=== PATIENT | female | born 1990 | race Caucasian/White ===

== ENCOUNTER 2016-08-04 15:24 | Emergency (ER) | payer SELFPAY ==
--- NOTE | 2016-08-04 17:21 | DIAGNOSTIC IMAGING REPORT ---
PROCEDURE: CT ABD/PELVIS WITH CONTRAST CLINICAL INDICATION: Right lower quadrant pain x 2 days, initial encounter TECHNIQUE: 125 ml of Isovue 300 were injected intravenously and axial images were obtained of the entire abdomen and pelvis with sagittal and coronal reformations. COMPARISON: None. FINDINGS: ABDOMEN: Lung base are clear. Heart size is normal. Liver, gallbladder, pancreas, spleen, adrenal glands, kidneys and abdominal aorta are normal. Nonspecific bowel gas pattern. PELVIS: Normal appendix. 1.9 cm involuting right ovarian cysts with a small amount of adjacent free fluid. Normal uterus, left adnexa and bladder. Bones are unremarkable. IMPRESSION: 1. Normal appendix 2. 1.9 cm involuting right ovarian cysts with a small amount of adjacent free fluid 3. Results discussed with Dr. Perez All CT scans at this facility use dose modulation, iterative reconstruction, and/or weight-based dosing when appropriate to reduce radiation dose to as low as reasonably achievable.
--- NOTE | 2016-08-04 17:43 | ED ORDER SUMMARY ---
..... Patient: LEAH KONG OrderSheet [facility] VisitID: [id number] [place] [address] 26y, F Registration Date/Time: 08/04/2016 ORDER SHEET Weight: 70.3 kg (stated) Allergies: None GENERAL ORDERS: UA-Culture if indicated Urgent (15:56 08/04/2016 Jay R.N. verbal order read back to Nicole SHIELDS) (15:56 Jay R.N.) CT Abd/Pel w Cont (No) (N/A) Urgent (15:57 08/04/2016 Nicole SHIELDS) (Ack 16:00 LMuller) (17:01 [facility]) CBC w Diff Urgent (15:57 08/04/2016 Nicole SHIELDS) (Ack 16:00 LMuller) (16:28 Jay R.N.) Urine Urgent (15:57 08/04/2016 Nicole SHIELDS) (Ack 16:00 LMuller) (16:28 Jay R.N.) CMP Urgent (15:57 08/04/2016 Nicole SHIELDS) (Ack 16:00 LMuller) (16:28 Jay R.N.) Lipase Urgent (15:57 08/04/2016 Nicole SHIELDS) (Ack 16:00 LMuller) (16:28 Jay R.N.) Amylase Urgent (15:57 08/04/2016 Nicole SHIELDS) (Ack 16:00 LMuller) (16:28 Jay R.N.) MEDICATION ORDERS: IV FLUIDS: IV NS : initial bolus 500 mL (1000 mL/hr), then 250 mL/hr for 4h (NOW); Routine (15:57 08/04/2016 Nicole SHIELDS) (16:26 Jay R.N.) Dilaudid IV 1 mg (NOW) (16:08/04/2016 Nicole SHIELDS) (16:28 Jay R.N.) Zofran IV 4 mg (NOW) (16:08/04/2016 Nicole SHIELDS) (16:27 Jay Bennett) ORDER SHEET NOTES: [Electronically signed by Jose Martin Valdivia R.N. (18:31 08/04/2016)] [Electronically signed by Julián Perez MD (17:20 08/08/2016)] [Electronically locked/signed by Jose Martin Valdivia R.N. (18:08/04/2016)]
--- NOTE | 2016-08-04 17:43 | ED NURSING NOTES ---
Clinical Report - Nurses [facility] [place] [address] 08/04/2016 15:27 Patient: LEAH KONG TRIAGE Triage time 15:50 Aug 04 2016. --15:50 Go Hui R.N. Acuity: LEVEL 3. Chief Complaint: ABDOMINAL PAIN and NAUSEA. Alert. SEAN COMA SCORE: [place] Coma Scale: 15- eyes open spontaneously (4); best verbal response- oriented x 4 (5); best motor response- obeys commands (6). --16:05 Go Hui R.N. 15:59 08/04/16. BP: 110/76. HR: 83. RR: 18. O2 saturation: 100% on room air. Temp: 98.4 F (oral). Pain level now: 8/10. Additional comments: Constant, stabbing. --16:05 Go Hui R.N. Weight: 70.3 kg stated. Height/Length: 61 inches Per Patient. BMI: 29.3. --16:00 Go Hui R.N. Medications Tums Oral, as needed. Tylenol Oral, as needed. --16:00 Go Hui R.N. Medication/allergy information source: the patient. --16:05 Go Hui R.N. Allergies None. --18:31 Jose Martin Valdivia R.N. History Arrived by private vehicle. Historian: patient. Accompanied by friend. ( RLQ Abdominal Pain). --15:50 Go Hui R.N. This started yesterday. Onset. (about 22 hours ago). She has had nausea and abdominal pain. 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 Symptoms did not improve after treatment. PAST MEDICAL HX: Immunizations: status is unknown. Last normal menstrual period was 2 weeks ago. Denies current . SOCIAL HX: No marijuana. Heavy tobacco smoker (cigarette)- less than 1 pack per day. No alcohol use. No recent travel. No infectious disease exposure. No known contact with a sick individual. ABUSE ASSESSMENT: No report of abuse. FALL RISK ASSESSMENT: Fall risk assessment completed. No fall risk identified. NUTRITIONAL RISK ASSESSMENT: The nutritional risk assessment revealed no deficiencies. FUNCTIONAL ASSESSMENT: Functional assessment: no impairments noted. LEARNING NEEDS ASSESSMENT: The learning needs assessment revealed no barriers. SKIN INTEGRITY ASSESSMENT: Skin integrity risk assessment completed. No skin integrity risk identified. --16:05 Go Hui R.N. Interventions ID band on patient. To treatment room. --16:05 Go Hui R.N. PHYSICAL ASSESSMENT Ambulatory to room. GENERAL / NEURO / PSYCH: Alert. Oriented X 4. Appears in pain. HEENT: Mucous membranes are pink. RESPIRATORY: Respirations not labored. CVS: Normal sinus rhythm noted. GI / : Abdomen soft. Abdominal tenderness in the right lower quadrant. SKIN: Skin is warm and dry. --16:05 Go Hui R.N. NURSING PROGRESS NOTES Patient gowned. Reassurance given. Patient identifiers checked. Call light placed in reach. Side rails up x 1. Bed placed in lowest position. Brakes of bed on. Patient ready for evaluation- chart flagged and ED physician notified. --16:05 Go Hui R.N. 16:16 08/04/2016 Site #1 started via IV in the right antecubital space with an 20g angiocath, with aseptic technique and good blood return; one attempt. Blood drawn: rainbow set. Labeled in the presence of the patient and sent to the lab. Saline lock flushed with 10 mL saline. --16:26 Go Hui R.N. 16:08/04/2016 Started bag #1 1000 mL IV Fluids IV NS (Saline); at 500 mL/hr over 60 minute(s) via site #1 via IV pump. Allergies verified and confirmed 5 rights. IV patency established. IV site checked: no pain, redness, or swelling. IV flushed thoroughly pre- and post-medication administration. --16:26 Go Hui R.N. 16:08/04/2016 Zofran (Ondansetron HCl) IVP 4 mg given over 2 minute(s) via site #1. Allergies verified and confirmed 5 rights. IV patency established. IV site checked: no pain, redness, or swelling. IV flushed thoroughly pre- and post-medication administration. IVP given by RN. --16:27 Go Hui R.N. 16:26 08/04/2016 Dilaudid (HYDROmorphone HCl PF) IVP 1 mg given over 2 minute(s) via site #1. 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 IV patency established. IV site checked: no pain, redness, or swelling. IV flushed thoroughly pre- and post-medication administration. IVP given by RN. --16:28 Go Hui R.N. 17:30 08/04/16. BP: 105/71. HR: 58. RR: 16. O2 saturation: 100%. Pain level now: 0/10. --17:39 Go Hui R.N. 18:02 08/04/2016 IV Fluids IV NS Discontinued: bag #1 infused upon discharge. Total amount infused: 800 mL. IV patency established. IV site checked: no pain, redness, or swelling. IV flushed thoroughly. --18:02 Jose Martin Valdivia R.N. DISPOSITION / DISCHARGE 18:02 08/04/2016 Site #1 removed upon discharge. Catheter intact. --18:02 Jose Martin Valdivia R.N. 18:08/04/16. Condition at departure: improved. The goals identified in the patient's plan of care were met. No learning barriers present. Discharge instructions provided and reviewed with the patient. Reviewed warnings. Reviewed medication(s). Treatments reviewed. Patient verbalized understanding. Written instructions provided in Kazakh. The patient was discharged by the physician. She was discharged home and accompanied by family. She left the Emergency Department ambulatory and via private vehicle. Family member driving. FALL RISK ASSESSMENT: Fall risk assessment completed. No fall risk identified. --18:02 Jose Martin Valdivia R.N. 18:08/04/16. BP: 108/72. HR: 80. RR: 12. O2 saturation: 99% on room air. Temp: 98.1 F (oral). --18:02 Jose Martin Valdivia R.N. 18:08/04/16. Departure time: 18:02. --18:02 Jose Martin Valdivia R.N. Locked/Released at 08/04/2016 18:31 by Jose Martin Valdivia R.N.
--- NOTE | 2016-08-04 17:43 | ED NURSING NOTES ---
Clinical Report - Nurses [facility] [place] [address] 08/04/2016 15:27 Patient: LEAH KONG TRIAGE Triage time 15:50 Aug 04 2016. --15:50 Go Hui R.N. Acuity: LEVEL 3. Chief Complaint: ABDOMINAL PAIN and NAUSEA. Alert. SEAN COMA SCORE: [place] Coma Scale: 15- eyes open spontaneously (4); best verbal response- oriented x 4 (5); best motor response- obeys commands (6). --16:05 Go Hui R.N. 15:59 08/04/16. BP: 110/76. HR: 83. RR: 18. O2 saturation: 100% on room air. Temp: 98.4 F (oral). Pain level now: 8/10. Additional comments: Constant, stabbing. --16:05 Go Hui R.N. Weight: 70.3 kg stated. Height/Length: 61 inches Per Patient. BMI: 29.3. --16:00 Go Hui R.N. Medications Tums Oral, as needed. Tylenol Oral, as needed. --16:00 Go Hui R.N. Medication/allergy information source: the patient. --16:05 Go Hui R.N. Allergies None. --18:31 Jose Martin Valdivia R.N. History Arrived by private vehicle. Historian: patient. Accompanied by friend. ( RLQ Abdominal Pain). --15:50 Go Hui R.N. This started yesterday. Onset. (about 22 hours ago). She has had nausea and abdominal pain. 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 Symptoms did not improve after treatment. PAST MEDICAL HX: Immunizations: status is unknown. Last normal menstrual period was 2 weeks ago. Denies current . SOCIAL HX: No marijuana. Heavy tobacco smoker (cigarette)- less than 1 pack per day. No alcohol use. No recent travel. No infectious disease exposure. No known contact with a sick individual. ABUSE ASSESSMENT: No report of abuse. FALL RISK ASSESSMENT: Fall risk assessment completed. No fall risk identified. NUTRITIONAL RISK ASSESSMENT: The nutritional risk assessment revealed no deficiencies. FUNCTIONAL ASSESSMENT: Functional assessment: no impairments noted. LEARNING NEEDS ASSESSMENT: The learning needs assessment revealed no barriers. SKIN INTEGRITY ASSESSMENT: Skin integrity risk assessment completed. No skin integrity risk identified. --16:05 Go Hui R.N. Interventions ID band on patient. To treatment room. --16:05 Go Hui R.N. PHYSICAL ASSESSMENT Ambulatory to room. GENERAL / NEURO / PSYCH: Alert. Oriented X 4. Appears in pain. HEENT: Mucous membranes are pink. RESPIRATORY: Respirations not labored. CVS: Normal sinus rhythm noted. GI / : Abdomen soft. Abdominal tenderness in the right lower quadrant. SKIN: Skin is warm and dry. --16:05 Go Hui R.N. NURSING PROGRESS NOTES Patient gowned. Reassurance given. Patient identifiers checked. Call light placed in reach. Side rails up x 1. Bed placed in lowest position. Brakes of bed on. Patient ready for evaluation- chart flagged and ED physician notified. --16:05 Go Hui R.N. 16:16 08/04/2016 Site #1 started via IV in the right antecubital space with an 20g angiocath, with aseptic technique and good blood return; one attempt. Blood drawn: rainbow set. Labeled in the presence of the patient and sent to the lab. Saline lock flushed with 10 mL saline. --16:26 Go Hui R.N. 16:08/04/2016 Started bag #1 1000 mL IV Fluids IV NS (Saline); at 500 mL/hr over 60 minute(s) via site #1 via IV pump. Allergies verified and confirmed 5 rights. IV patency established. IV site checked: no pain, redness, or swelling. IV flushed thoroughly pre- and post-medication administration. --16:26 Go Hui R.N. 16:08/04/2016 Zofran (Ondansetron HCl) IVP 4 mg given over 2 minute(s) via site #1. Allergies verified and confirmed 5 rights. IV patency established. IV site checked: no pain, redness, or swelling. IV flushed thoroughly pre- and post-medication administration. IVP given by RN. --16:27 Go Hui R.N. 16:26 08/04/2016 Dilaudid (HYDROmorphone HCl PF) IVP 1 mg given over 2 minute(s) via site #1. 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 IV patency established. IV site checked: no pain, redness, or swelling. IV flushed thoroughly pre- and post-medication administration. IVP given by RN. --16:28 Go Hui R.N. 17:30 08/04/16. BP: 105/71. HR: 58. RR: 16. O2 saturation: 100%. Pain level now: 0/10. --17:39 Go Hui R.N. 18:02 08/04/2016 IV Fluids IV NS Discontinued: bag #1 infused upon discharge. Total amount infused: 800 mL. IV patency established. IV site checked: no pain, redness, or swelling. IV flushed thoroughly. --18:02 Jose Martin Valdivia R.N. DISPOSITION / DISCHARGE 18:02 08/04/2016 Site #1 removed upon discharge. Catheter intact. --18:02 Jose Martin Valdivia R.N. 18:08/04/16. Condition at departure: improved. The goals identified in the patient's plan of care were met. No learning barriers present. Discharge instructions provided and reviewed with the patient. Reviewed warnings. Reviewed medication(s). Treatments reviewed. Patient verbalized understanding. Written instructions provided in German. The patient was discharged by the physician. She was discharged home and accompanied by family. She left the Emergency Department ambulatory and via private vehicle. Family member driving. FALL RISK ASSESSMENT: Fall risk assessment completed. No fall risk identified. --18:02 Jose Martin Valdivia R.N. 18:08/04/16. BP: 108/72. HR: 80. RR: 12. O2 saturation: 99% on room air. Temp: 98.1 F (oral). --18:02 Jose Martin Valdivia R.N. 18:08/04/16. Departure time: 18:02. --18:02 Jose Martin Valdivia R.N. Locked/Released at 08/04/2016 18:31 by Jose Martin Valdivia R.N.
--- NOTE | 2016-08-04 17:43 | ED CLINICAL REPORT ---
Clinical Report - Physicians/Mid Levels [facility] [address] [place] [address] 08/04/2016 15:27 Patient: LEAH KONG Time Seen: 15:29 Aug 04 2016. Arrived- By private vehicle. Historian- patient. CPT: ER phys charges level 4 (#533907). HISTORY OF PRESENT ILLNESS Chief Complaint: ABDOMINAL PAIN. At its maximum, severity described as moderate. When seen in the E.D., severity described as moderate. Modifying factors- worsened by movement. Relieved by rest. It is described as "pain", sharp and stabbing and it is described as located in the right lower quadrant. This started yesterday. The patient has had nausea and loss of appetite. No vomiting or diarrhea. No recent travel. Similar symptoms previously: None. Recent medical care: Not recently seen/assessed. REVIEW OF SYSTEMS No constipation, black stools, hematemesis, difficulty with urination or pain with urination. No urinary frequency, fever, sore throat, chest pain or difficulty breathing. No cough, joint pain, skin rash, chills or back pain. All systems otherwise negative, except as recorded above. PAST HISTORY Negative. Medications: Tums Oral, as needed. Tylenol Oral, as needed. Allergies: None. SOCIAL HISTORY Heavy tobacco smoker (cigarette)- 1 pack per day. No alcohol use or drug use. ADDITIONAL NOTES The nursing notes have been reviewed. PHYSICAL EXAM Vital Signs: 08/04/2016 15:59 BP: 110/76. HR: 83. RR: 18. O2 saturation: 100%. Temp: 98.4 F. Pain level now: 8/10. Appearance: Alert. Patient in mild distress. Eyes: Eyes normal inspection. ENT: Pharynx normal. Neck: Normal inspection. CVS: Normal heart rate and rhythm. Heart sounds normal. Pulses normal. Respiratory: No respiratory distress. Breath sounds normal. Chest nontender. Abdomen: Soft. Moderate tenderness in the right lower quadrant. No guarding. Bowel sounds normal. No mass. Back: Normal inspection. Skin: Skin warm. Normal skin color. No rash. Extremities: Extremities exhibit normal ROM. No lower extremity edema. Neuro: Oriented X 3. No motor deficit. LABS, X-RAYS, AND EKG Abdominal CT: An ovarian cyst is present. There is free fluid- involuding cyst consistent with rupture. The study was independently viewed by me, interpreted by the radiologist and discussed with the radiologist. Laboratory Tests: UA-Culture if indicated: (JM: 08/04/2016 15:45) ( [facility] 08/04/2016 16:29) Final results Test Result Flag Units (Reference) URINE COLOR COLORLESS URINE APPEARANCE CLEAR URINE GLUCOSE NEGATIVE (NEGATIVE) URINE BILIRUBIN NEGATIVE (NEGATIVE) URINE KETONE NEGATIVE (NEGATIVE) URINE SPECIFIC GRAVITY 1.010 (1.010-1.030) URINE PH 6.5 (5.0-8.0) URINE PROTEIN NEGATIVE (NEGATIVE) URINE UROBILINOGEN 0.2 EU/dL (0.2-1.0) URINE NITRITE NEGATIVE (NEGATIVE) URINE BLOOD NEGATIVE (NEGATIVE) URINE LEUK ESTERASE NEGATIVE (NEGATIVE) URINE RBC 0-1 rbc/hpf (0-1) URINE WBC 0-1 wbc/hpf (0-1) URINE EPITHELIAL CELLS NONE SEEN EPI/hpf (0-5) URINE BACTERIA NONE SEEN (NONE SEEN) URINE COMMENT CULT NOT INDICATED URINE CULTURES ARE SET-UP BASED ON THE FOLLOWING CRITERIA:POSITIVE NITRITEPOSITIVE LEUKOCYTE ESTERASEGREATER THAN 10 WHITE BLOOD CELLSMODERATE (2+) OR GREATER BACTERIA Urine: (JM: 08/04/2016 15:45) ( [facility] 08/04/2016 16:13) Final results Test Result Flag Units (Reference) URINE NEGATIVE CBC w Diff: (JM: 08/04/2016 16:10) ( [facility] 08/04/2016 17:04) Final results Test Result Flag Units (Reference) WHITE BLOOD COUNT 10.0 K/uL (4.5-11.5) RED BLOOD COUNT 4.76 M/uL (4.00-5.20) HEMOGLOBIN 14.3 gm/dL (12.0-16.0) HEMATOCRIT 43.1 % (36.0-46.0) MEAN CELL VOLUME 91 fL (80-100) MEAN CORPUSCULAR HGB 30 pg (26-34) MEAN CORPUSCULAR HGB CONC 33 g/dL (31-37) RED CELL DISTRIBUTION WIDTH 13.2 % (11.6-14.8) PLATELET COUNT 251 K/uL (150-400) NEUTROPHIL % 73.8 % (50-75) LYMPH % 19.0 L % (25-40) MONO % 6.7 % (3-14) EOSINOPHIL % 0.2 % (0-4) BASOPHIL % 0.3 % (0-2) CMP: (JM: 08/04/2016 16:10) ( MsgRcvd 08/04/2016 16:46) Final results Test Result Flag Units (Reference) GLUCOSE 86 mg/dL (70-110) BUN 8 mg/dL (7-18) CREATININE 0.7 mg/dL (0.6-1.3) Estimated GFR >60 mL/min Estimated GFR- >60 mL/min Note: Persistent reduction over 3 months in eGFR<60 mL/min/1.73 m2 defines CKD. Patients with eGFR values>=60 mL/min/1.73 m2 may also have CKD if evidence ofpersistent proteinuria. Additional information may be foundat www.kidney.org. SODIUM 140 mmol/L (136-145) POTASSIUM 3.8 mmol/L (3.5-5.1) CHLORIDE 105 mmol/L (98-107) CARBON DIOXIDE 24 mmol/L (21-32) CALCIUM 8.9 mg/dL (8.5-10.1) TOTAL PROTEIN 8.0 g/dL (6.4-8.2) ALBUMIN 3.8 g/dL (3.3-5.0) BILIRUBIN, TOTAL 0.5 mg/dL (0.0-1.0) ALKALINE PHOSPHATASE 56 U/L (46-116) AST (SGOT) 18 U/L (15-37) ALT (SGPT) 23 U/L (12-78) LIPASE 106 U/L (73-393) AMYLASE 63 U/L (25-115) . PROGRESS AND PROCEDURES Course of Care: IV normal saline and Zofran 4 mg IV and Dilaudid 1 mg IV. 17:40 08/04/16. This does not have any pain at this time. Patient is stable. The patient's symptoms are now gone. Patient/family counseled. Disposition: Discharged. Condition: stable and improved. CLINICAL IMPRESSION Single ruptured simple right ovarian cyst. INSTRUCTIONS No strenuous activity. Do not work for two days until better. Drink plenty of fluids. Warnings: Further evaluation is necessary. GENERAL WARNINGS: Return or contact your physician immediately if your condition worsens or changes unexpectedly, if not improving as expected, or if other problems arise. Prescription Medications: Zofran (orally disintegrating tablets) 4 mg: take 1 orally every 4 hours as needed for nausea. Dispense ten (10). No refill. Substitution is permissible. Oxycodone/APAP 5 mg/325 mg: take 1-2 tablets orally every 4 hours as needed for pain. Dispense twenty (20). No refill. Follow-up: Return to the emergency department If worse. Follow up with your doctor in three days if not better. Understanding of the discharge instructions verbalized by patient, parent and family. (Electronically signed by Julián Perez MD 08/08/2016 17:20)
--- NOTE | 2016-08-04 17:43 | ED ORDER SUMMARY ---
..... Patient: LEAH KONG OrderSheet [facility] VisitID: [id number] [place] [address] 26y, F Registration Date/Time: 08/04/2016 ORDER SHEET Weight: 70.3 kg (stated) Allergies: None GENERAL ORDERS: UA-Culture if indicated Urgent (15:56 08/04/2016 Jay R.N. verbal order read back to Nicole SHIELDS) (15:56 Jay R.N.) CT Abd/Pel w Cont (No) (N/A) Urgent (15:57 08/04/2016 Nicole SHIELDS) (Ack 16:00 LMuller) (17:01 [facility]) CBC w Diff Urgent (15:57 08/04/2016 Nicole SHIELDS) (Ack 16:00 LMuller) (16:28 Jay R.N.) Urine Urgent (15:57 08/04/2016 Nicole SHIELDS) (Ack 16:00 LMuller) (16:28 Jay R.N.) CMP Urgent (15:57 08/04/2016 Nicole SHIELDS) (Ack 16:00 LMuller) (16:28 Jay R.N.) Lipase Urgent (15:57 08/04/2016 Nicole SHIELDS) (Ack 16:00 LMuller) (16:28 Jay R.N.) Amylase Urgent (15:57 08/04/2016 Nicole SHIELDS) (Ack 16:00 LMuller) (16:28 Jay R.N.) MEDICATION ORDERS: IV FLUIDS: IV NS : initial bolus 500 mL (1000 mL/hr), then 250 mL/hr for 4h (NOW); Routine (15:57 08/04/2016 Nicole SHIELDS) (16:26 Jay R.N.) Dilaudid IV 1 mg (NOW) (16:08/04/2016 Nicole SHIELDS) (16:28 Jay R.N.) Zofran IV 4 mg (NOW) (16:08/04/2016 Nicole SHIELDS) (16:27 Jay Bennett) ORDER SHEET NOTES: [Electronically signed by Jose Martin Valdivia R.N. (18:31 08/04/2016)] [Electronically signed by Julián Perez MD (17:20 08/08/2016)] [Electronically locked/signed by Jose Martin Valdivia R.N. (18:08/04/2016)]
--- NOTE | 2016-08-08 17:20 | ED MED RECONCILIATION SUMMARY ---
Patient: LEAH KONG Medication Reconciliation Report [facility] VisitID: [id number] [address] [place] [address] 26y, F Registration Date/Time: 08/04/2016 Weight: 70.3 kg Height/Length: 61 in. BMI: 29.3 ALLERGIES: None The patient's Home Medications are listed below: THE FOLLOWING MEDICATIONS NEED TO BE RECONCILED: Tums Oral Tylenol Oral The source(s) of the original Home Medication information: patient The following Medications were given to the patient in the Emergency Department: IV NS IV Fluids bolus 0, then 500 mL/hr, administered: 08/04/2016 4:21:00 PM Zofran [IVP] IVP 4 mg, administered: 08/04/2016 4:24:00 PM Dilaudid [IVP] IVP 1 mg, administered: 08/04/2016 4:26:00 PM The following Medications were prescribed to the patient: Zofran (orally disintegrating tablets) 4 mg: take 1 orally every 4 hours as needed for nausea. Dispense ten (10). No refill. Substitution is permissible. -- Julián Perez MD Oxycodone/APAP 5 mg/325 mg: take 1-2 tablets orally every 4 hours as needed for pain. Dispense twenty (20). No refill. -- Julián Perez MD
--- NOTE | 2016-08-08 17:20 | ED MED RECONCILIATION SUMMARY ---
Patient: LEAH KONG Medication Reconciliation Report [facility] VisitID: [id number] [address] [place] [address] 26y, F Registration Date/Time: 08/04/2016 Weight: 70.3 kg Height/Length: 61 in. BMI: 29.3 ALLERGIES: None The patient's Home Medications are listed below: THE FOLLOWING MEDICATIONS NEED TO BE RECONCILED: Tums Oral Tylenol Oral The source(s) of the original Home Medication information: patient The following Medications were given to the patient in the Emergency Department: IV NS IV Fluids bolus 0, then 500 mL/hr, administered: 08/04/2016 4:21:00 PM Zofran [IVP] IVP 4 mg, administered: 08/04/2016 4:24:00 PM Dilaudid [IVP] IVP 1 mg, administered: 08/04/2016 4:26:00 PM The following Medications were prescribed to the patient: Zofran (orally disintegrating tablets) 4 mg: take 1 orally every 4 hours as needed for nausea. Dispense ten (10). No refill. Substitution is permissible. -- Julián Perez MD Oxycodone/APAP 5 mg/325 mg: take 1-2 tablets orally every 4 hours as needed for pain. Dispense twenty (20). No refill. -- Julián Perez MD
--- NOTE | 2016-08-08 17:20 | ED DISCHARGE INSTRUCTIONS ---
Patient: LEAH KONG General Instructions [facility] VisitID: [id number] [place] [address] 26y, F Registration Date/Time: 08/04/2016 Single ruptured simple right ovarian cyst. INSTRUCTIONS No strenuous activity. Do not work for two days until better. Drink plenty of fluids. Warnings: Further evaluation is necessary. GENERAL WARNINGS: Return or contact your physician immediately if your condition worsens or changes unexpectedly, if not improving as expected, or if other problems arise. Prescription Medications: Zofran (orally disintegrating tablets) 4 mg: take 1 orally every 4 hours as needed for nausea. Dispense ten (10). No refill. Substitution is permissible. Oxycodone/APAP 5 mg/325 mg: take 1-2 tablets orally every 4 hours as needed for pain. Dispense twenty (20). No refill. Follow-up: Return to the emergency department If worse. Follow up with your doctor in three days if not better. Understanding of the discharge instructions verbalized by patient, parent and family. ADDITIONAL INFORMATION Ovarian Cyst The ovary is a small organ located on each side of the uterus. During each menstrual cycle a tiny egg sac forms in the ovary. If the egg is released but does not occur, this sac usually dissolves. Sometimes, the sac may fill with fluid. It then enlarges into a painful cyst. Usually the cyst will rupture or shrink on its own. In either case, the pain gradually goes away over the next 1-3 days. If the cyst does not shrink or rupture, it may cause continued pain. Home Care: Rest in bed and avoid heavy exertion until you are feeling better. Heat to the lower abdomen usually helps (heating pad or hot packs -- a small towel soaked in hot water). You may use acetaminophen (Tylenol) or ibuprofen (Motrin, Advil) to control pain, unless another pain medicine was prescribed. [NOTE: If you have chronic liver or kidney disease or ever had a stomach ulcer or GI bleeding, talk with your doctor before using these medicines.] Follow Up: See your doctor within the next 2-3 days if your pain doesnt improve. Otherwise, follow up with your doctor after your next period or as directed by our staff. Get Prompt Medical Attention if any of the following occur: Pain worsens or fails to respond to the above measures Fever of 100.4F (38C) or higher, or as directed by your healthcare provider Heavy vaginal bleeding (soaking one pad an hour for three hours) You feel weak or dizzy Fainting Passage of a pink or pastor tissue with menstrual bleeding Ondansetron Oral disintegrating tablet What is this medicine? ONDANSETRON (on SABINA se genoveva) is used to treat nausea and vomiting caused by chemotherapy. It is also used to prevent or treat nausea and vomiting after surgery. How should I use this medicine? These tablets are made to dissolve in the mouth. Do not try to push the tablet through the foil backing. With dry hands, peel away the foil backing and gently remove the tablet. Place the tablet in the mouth and allow it to dissolve, then swallow. While you may take these tablets with water, it is not necessary to do so. Talk to your college or university faculty member regarding the use of this medicine in children. Special care may be needed. What side effects may I notice from receiving this medicine? Side effects that you should report to your doctor or health ocular care technician as soon as possible: allergic reactions like skin rash, itching or hives, swelling of the face, lips, or tongue breathing problems dizziness fast or irregular heartbeat feeling faint or lightheaded, falls fever and chills swelling of the hands and feet tightness in the chest Side effects that usually do not require medical attention (report to your doctor or health ocular care technician if they continue or are bothersome): constipation or diarrhea headache What may interact with this medicine? Do not take this medicine with any of the following medications: -apomorphine -cisapride -dofetilide -dronedarone -pimozide -thioridazine -ziprasidone This medicine may also interact with the following medications: -carbamazepine -phenytoin -rifampicin -tramadol -other medicines that prolong the QT interval (cause an abnormal heart rhythm) What if I miss a dose? If you miss a dose, take it as soon as you can. If it is almost time for your next dose, take only that dose. Do not take double or extra doses. Where should I keep my medicine? Keep out of the reach of children. Store between 2 and 30 degrees C (36 and 86 degrees F). Throw away any unused medicine after the expiration date. What should I tell my health care provider before I take this medicine? They need to know if you have any of these conditions: heart disease history of irregular heartbeat liver disease low levels of magnesium or potassium in the blood an unusual or allergic reaction to ondansetron, granisetron, other medicines, foods, dyes, or preservatives or trying to get breast-feeding What should I watch for while using this medicine? Check with your doctor or health ocular care technician as soon as you can if you have any sign of an allergic reaction. Oxycodone Hydrochloride, Acetaminophen Oral tablet What is this medicine? ACETAMINOPHEN; OXYCODONE (a set a PILLO arg[place] fen; ox i KOE done) is a pain reliever. It is used to treat mild to moderate pain. How should I use this medicine? Take this medicine by mouth with a full glass of water. Follow the directions on the prescription label. Take your medicine at regular intervals. Do not take your medicine more often than directed. Talk to your college or university faculty member regarding the use of this medicine in children. Special care may be needed. Patients over 65 years old may have a stronger reaction and need a smaller dose. What side effects may I notice from receiving this medicine? Side effects that you should report to your doctor or health ocular care technician as soon as possible: allergic reactions like skin rash, itching or hives, swelling of the face, lips, or tongue breathing difficulties, wheezing confusion light headedness or fainting spells severe stomach pain yellowing of the skin or the whites of the eyes Side effects that usually do not require medical attention (report to your doctor or health ocular care technician if they continue or are bothersome): dizziness drowsiness nausea vomiting What may interact with this medicine? alcohol antihistamines barbiturates like amobarbital, butalbital, butabarbital, methohexital, pentobarbital, phenobarbital, thiopental, and secobarbital benztropine drugs for bladder problems like solifenacin, trospium, oxybutynin, tolterodine, hyoscyamine, and methscopolamine drugs for breathing problems like ipratropium and tiotropium drugs for certain stomach or intestine problems like propantheline, homatropine methylbromide, glycopyrrolate, atropine, belladonna, and dicyclomine general anesthetics like etomidate, ketamine, nitrous oxide, propofol, desflurane, enflurane, halothane, isoflurane, and sevoflurane medicines for depression, anxiety, or psychotic disturbances medicines for sleep muscle relaxants naltrexone narcotic medicines (opiates) for pain phenothiazines like perphenazine, thioridazine, chlorpromazine, mesoridazine, fluphenazine, prochlorperazine, promazine, and trifluoperazine scopolamine tramadol trihexyphenidyl What if I miss a dose? If you miss a dose, take it as soon as you can. If it is almost time for your next dose, take only that dose. Do not take double or extra doses. Where should I keep my medicine? Keep out of the reach of children. This medicine can be abused. Keep your medicine in a safe place to protect it from theft. Do not share this medicine with anyone. Selling or giving away this medicine is dangerous and against the law. Store at room temperature between 20 and 25 degrees C (68 and 77 degrees F). Keep container tightly closed. Protect from light. This medicine may cause accidental overdose and if it is taken by other adults, children, or pets. Flush any unused medicine down the toilet to reduce the chance of harm. Do not use the medicine after the expiration date. What should I tell my health care provider before I take this medicine? They need to know if you have any of these conditions: brain tumor Crohn's disease, inflammatory bowel disease, or ulcerative colitis drink more than 3 alcohol containing drinks per day drug abuse or addiction head injury heart or circulation problems kidney disease or problems going to the bathroom liver disease lung disease, asthma, or breathing problems an unusual or allergic reaction to acetaminophen, oxycodone, other opioid analgesics, other medicines, foods, dyes, or preservatives or trying to get breast-feeding What should I watch for while using this medicine? Tell your doctor or health ocular care technician if your pain does not go away, if it gets worse, or if you have new or a different type of pain. You may develop tolerance to the medicine. Tolerance means that you will need a higher dose of the medication for pain relief. Tolerance is normal and is expected if you take this medicine for a long time. Do not suddenly stop taking your medicine because you may develop a severe reaction. Your body becomes used to the medicine. This does NOT mean you are addicted. Addiction is a behavior related to getting and using a drug for a non-medical reason. If you have pain, you have a medical reason to take pain medicine. Your doctor will tell you how much medicine to take. If your doctor wants you to stop the medicine, the dose will be slowly lowered over time to avoid any side effects. You may get drowsy or dizzy. Do not drive, use machinery, or do anything that needs mental alertness until you know how this medicine affects you. Do not stand or sit up quickly, especially if you are an older patient. This reduces the risk of dizzy or fainting spells. Alcohol may interfere with the effect of this medicine. Avoid alcoholic drinks. There are different types of narcotic medicines (opiates) for pain. If you take more than one type at the same time, you may have more side effects. Give your health care provider a list of all medicines you use. Your doctor will tell you how much medicine to take. Do not take more medicine than directed. Call emergency for help if you have problems breathing. The medicine will cause constipation. Try to have a bowel movement at least every 2 to 3 days. If you do not have a bowel movement for 3 days, call your doctor or health ocular care technician. Do not take Tylenol (acetaminophen) or medicines that have acetaminophen with this medicine. Too much acetaminophen can be very dangerous. Many nonprescription medicines contain acetaminophen. Always read the labels carefully to avoid taking more acetaminophen. You have been given the following additional information: Ovarian Cyst Ondansetron Oral disintegrating tablet Oxycodone Hydrochloride, Acetaminophen Oral tablet No strenuous activity. Do not work for two days until better. (Electronically signed by Julián Perez MD 08/08/2016 17:20)
--- NOTE | 2016-08-08 17:20 | ED MAR SUMMARY ---
..... Medication Administration Record Located Within [facility] [address] [place] [address] Patient: LEAH KONG Visit ID: [id number] 26y, F Weight: 70.3 kg Height/Length: 61 in BMI: 29.3 ALLERGIES: None Start 16:21 08/04/2016 Go Hui RAle, Stop 18:02 08/04/2016 Jose Martin Valdivia R.N. Medication Administered: IV NS (SALINE), Dose: IV Fluids over 60 minute(s), Rate: 500 mL/hr, Dispensed: 1000 mL bag, Site: #1 right AC. Medication Ordered: IV NS : initial bolus 500 mL (1000 mL/hr), then 250 mL/hr for 4h (NOW); Routine. Given 16:08/04/2016 Go Hui RMartiN. Medication Administered: ZOFRAN [IVP] (ONDANSETRON HCL), Dose: 4 mg IVP over 2 minute(s), Site: #1 right AC. Medication Ordered: Zofran IV 4 mg (NOW). Given 16:08/04/2016 Go Hui RMartiN. Medication Administered: DILAUDID [IVP] (HYDROMORPHONE HCL PF), Dose: 1 mg IVP over 2 minute(s), Site: #1 right AC. Medication Ordered: Dilaudid IV 1 mg (NOW).
--- NOTE | 2016-08-08 17:20 | ED MAR SUMMARY ---
..... Medication Administration Record [facility] [address] [place] [address] Patient: LEAH KONG Visit ID: [id number] 26y, F Weight: 70.3 kg Height/Length: 61 in BMI: 29.3 ALLERGIES: None Start 16:21 08/04/2016 Go Hui RAle, Stop 18:02 08/04/2016 Jose Martin Valdivia R.N. Medication Administered: IV NS (SALINE), Dose: IV Fluids over 60 minute(s), Rate: 500 mL/hr, Dispensed: 1000 mL bag, Site: #1 right AC. Medication Ordered: IV NS : initial bolus 500 mL (1000 mL/hr), then 250 mL/hr for 4h (NOW); Routine. Given 16:08/04/2016 Go Hui RMartiN. Medication Administered: ZOFRAN [IVP] (ONDANSETRON HCL), Dose: 4 mg IVP over 2 minute(s), Site: #1 right AC. Medication Ordered: Zofran IV 4 mg (NOW). Given 16:08/04/2016 Go Hui RMartiN. Medication Administered: DILAUDID [IVP] (HYDROMORPHONE HCL PF), Dose: 1 mg IVP over 2 minute(s), Site: #1 right AC. Medication Ordered: Dilaudid IV 1 mg (NOW).
== END 2016-08-04 18:02 | disposition home or self-care (01) ==
LOC: ED SRH 15:24
DX: N83.291 Other ovarian cyst, right side (principal); F17.210 Nicotine dependence, cigarettes, uncomplicated
CPT/HCPCS: 90004; 90100; 92235; 92530; 93070; 95059